=== PATIENT | male | born 1990 | race Caucasian/White ===

== ENCOUNTER → 2025-01-15 15:15 | Outpatient (BNVA) | payer BC, SELFPAY | PROVIDERS: Family Provider Nurse Practitioner Family; PCP Nurse Practitioner Family; Visit Provider Clinical Nurse Specialist Adult Health | DX: J06.9 Acute upper respiratory infection, unspecified (principal) | CPT/HCPCS: 87426 ==

== ENCOUNTER 2025-04-07 18:18 | Emergency (ER) | payer BC, SELFPAY ==
--- NOTE | 2025-04-07 18:22 | ECG_ITS ---
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 Measurements Intervals Entiat Rate: 74 P: 75 NM: 143 QRS: 83 QRSD: 97 T: 58 QT: 361 QTc: 401 Interpretive Statements SINUS RHYTHM No previous ECG available for comparison Electronically Signed On 04-08-2025 23:04:20 CDT by Deja Lord M.D. [email or web address]
--- OUTSIDE RECORDS SUMMARY | 2025-04-07 18:24 | XMS_ITS | Encounter Summary ---
Author Organization [facility] Address [address] [place] [address] Care Team Providers Care Fire Prevention Inspector Name Role Phone Unavailable Primary Care Provider Unavailabl e Encounter Details Date Type Department Care Team (Late st Contact Info) Description 12/07/2005 Outpatient Historical [facility] Plastic Surgery 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
[2025-04-07 18:25] VITALS: BP 129/81; PULSE 71; RESP 17; TEMP 36.8; O2SAT 96; BMI 27.1
--- OUTSIDE RECORDS SUMMARY | 2025-04-07 18:25 | XMS_ITS | Encounter Summary ---
Author Organization [employer] [facility] Address [address] [place] [address] Care Team Providers Care Director Of Digital Marketing Name Role Phone Unavailable Primary Care Provider Unavailabl e Encounter Details Date Type Department Care Team (Late st Contact Info) Description 11/30/2005 Inpatient Historical [facility] Michel Bolden MD [address] [place] [address] Cellulitis and Abscess of Hand, except Fingers and Thumb (Primary Dx) Social History Tobacco Use Types Packs/Day Years Used Date Smoking Tobacco: Never Assessed Sex and Gender Information Value Date Recorded Sex Assigned at Not on file 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 Gender Identity Not on file Sexual Orientation Not on file documented as of this encounter Plan of Treatment Not on file documented as of this encounter Procedures Procedure Name Priority Date/Time Associated Diagnosis Comments PT AND APTT Routine 11/30/2005 7:04 PM EVENT MANAGEMENT CONSULTANT CBC WITH DIFFERENTIAL Routine 11/30/2005 7:04 PM EVENT MANAGEMENT CONSULTANT BASIC METABOLIC PANEL Routine 11/30/2005 7:04 PM EVENT MANAGEMENT CONSULTANT documented in this encounter Results * PT AND APTT (11/30/2005 7:04 PM EVENT MANAGEMENT CONSULTANT) PROTIME 14.9 12.6 - 14.9 Secs INTERFACE SYSTEM Comment: As of 05 note change in normal range. INR 1.1 INTERFACE SYSTEM Comment: Expected Values for INR: DVT/PE Goal INR 2.5; range 2.0 - 3.0 Valve Replacement Tissue Goal INR 2.5; range 2.0 - 3.0 Mechanical Goal INR 3.0; range 2.5 - 3.5 POST-NC Goal INR 2.5; range 2.0 - 3.0 or Goal 3.0; range 2.5 - 3.5 Atrial Fibrillation Goal INR 2.5; range 2.0 - 3.0 Ischemic Stroke Goal INR 2.5; range 2.0 - 3.0 For additional information see Guidelines for Anticoagulation available from the pharmacy Randee Kimble PTT 26.5 21.5 - 34.4 Secs INTERFACE SYSTEM Comment: Therapeutic Range: Hi-level PE/DVT heparin protocol 90.1 -110 sec Lo-level PE/DVT heparin protocol 75.1 - 95 sec Cardiac Heparin Protocol 85.1 - 100 sec Neuro Heparin Protocol 70.1 - 85 sec As of 09/28/05 note change in APTT Normal Range. 11/30/2005 7:04 PM EVENT MANAGEMENT CONSULTANT Historical Provider HEMATOLOGY ORDERABLES Final Result Performing Organization Address [facility] Phone Number INTERFACE SYSTEM Refer to clinic/hospital department * BASIC METABOLIC PANEL (11/30/2005 7:04 PM EVENT MANAGEMENT CONSULTANT) GLUCOSE 90 70 - 110 mg/dL INTERFACE SYSTEM BUN 13 9 - 20 mg/dL INTERFACE SYSTEM CREATININE 1.0 0.7 - 1.5 mg/dL INTERFACE SYSTEM SODIUM 140 136 - 145 mEq/L INTERFACE SYSTEM POTASSIUM 3.8 3.5 - 5.0 mEq/L INTERFACE SYSTEM CHLORIDE 103 95 - 110 mEq/L INTERFACE SYSTEM CO2 28 22 - 32 mmol/l INTERFACE SYSTEM ANION GAP 13 9 - 20 mEq/L INTERFACE SYSTEM OSMOLALITY, CALCULATED 287 275 - 295 mOsm/Kg INTERFACE SYSTEM CALCIUM 9.6 8.4 - 10.5 mg/dL INTERFACE SYSTEM 11/30/2005 7:04 PM EVENT MANAGEMENT CONSULTANT Historical Provider CHEMISTRY ORDERABLES Final R esult Performing Organization Address [facility] de Phone Number INTERFACE SYSTEM Refer to clinic/hospital department * (ABNORMAL) CBC WITH DIFFERENTIAL (11/30/2005 7:04 PM EVENT MANAGEMENT CONSULTANT) WBC 12.7 4.5 - 13.5 K/ul INTERFACE SYSTEM RBC 4.91 4.30 - 5.30 Mil/ul INTERFACE SYSTEM HEMOGLOBIN 14.4 13.0 - 16.0 g/dL INTERFACE SYSTEM HEMATOCRIT 41.4 37.0 - 49.0 % INTERFACE SYSTEM MCV 84.3 78.0 - 98.0 Fl INTERFACE SYSTEM MCH 29.3 26.0 - 32.0 pg INTERFACE SYSTEM MCHC 34.8 33.0 - 35.0 g/dL INTERFACE SYSTEM RDW 12.8 11.0 - 14.5 % INTERFACE SYSTEM PLATELETS 173 140 - 440 K/ul INTERFACE SYSTEM MPV 10.6 8.9 - 12.8 Fl INTERFACE SYSTEM NEUTROPHILS 74.0 42.2 - 75.2 % INTERFACE SYSTEM LYMPHOCYTES 14.0(L) 24.0 - 44.0 % INTERFACE SYSTEM MONOCYTES 11.5(H) 2.0 - 10.0 % INTERFACE SYSTEM EOSINOPHILS 0.3 0.0 - 7.0 % INTERFACE SYSTEM BASOPHILS 0.2 0.0 - 1.0 % INTERFACE SYSTEM NEUTROPHIL ABSOLUTE 9.4(H) 2.0 - 8.0 K/uL INTERFACE SYSTEM LYMPHOCYTE ABSOLUTE 1.8 1.2 - 4.0 K/ul INTERFACE SYSTEM MONOCYTE ABSOLUTE 1.5(H) 0.1 - 0.6 K/ul INTERFACE SYSTEM EOSINOPHIL ABSOLUTE 0.0 0.0 - 0.7 K/ul INTERFACE SYSTEM BASOPHILS ABSOLUTE 0.0 0.0 - 0.2 K/ul INTERFACE SYSTEM 11/30/2005 7:04 PM EVENT MANAGEMENT CONSULTANT us Historical Provider HEMATOLOGY ORDERABLES Final Result INTERFACE SYSTEM Refer to clinic/hospital department documented in this encounter Visit Diagnoses Diagnosis Cellulitis and abscess of hand, except fingers and thumb- Primary documented in this encounter
--- OUTSIDE RECORDS SUMMARY | 2025-04-07 18:25 | XMS_ITS | Encounter Summary ---
Author Organization [facility] Address [address] [place] [address] Care Team Providers Care Hat Designer Name Role Phone Unavailable Primary Care Provider Unavailabl e Encounter Details Date Type Department Care Team (Latest Contact Info) Description 12/20/2002 Outpatient Historical [facility] Dermatology- [facility] [address] [place] [address] Jerman Duffy MD NO ADDRESS ON FILE ACNE NEC (Primary Dx) Social History Tobacco Use Types Packs/Day Years Used Date Smoking Tobacco: Never Assessed Sex and Gender Information Value Date Recorded Sex Assigned at Not on file 

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
--- OUTSIDE RECORDS SUMMARY | 2025-04-07 18:25 | XMS_ITS | Encounter Summary ---
Author Organization [facility] Address [address] [place] [address] Care Team Providers Care Monument Setter Helper Name Role Phone Unavailable Primary Care Provider Unavailabl e Encounter Details Date Type Department Care Team (Latest Contact Info) Description 10/13/2003 Outpatient Historical [facility] Dermatology- [facility] [place] [address] [place] [address] Jerman Duffy MD NO ADDRESS ON FILE ACNE NEC (Primary Dx) Social History Tobacco Use Types Packs/Day Years Used Date Smoking Tobacco: Never Assessed Sex and Gender Information Value Date Recorded Sex Assigned at Not on file 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
--- OUTSIDE RECORDS SUMMARY | 2025-04-07 18:25 | XMS_ITS | Encounter Summary ---
Author Organization [facility] Address [address] [place] [address] Care Team Providers Care Sales Agent Food Vending Service Name Role Phone Unavailable Primary Care Provider Unavailabl e Encounter Details Date Type Department Care Team (Late st Contact Info) Description 12/16/2005 Outpatient Historical [facility] Plastic Surgery 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
--- OUTSIDE RECORDS SUMMARY | 2025-04-07 18:25 | XMS_ITS | Encounter Summary ---
Author Organization [facility] Address [address] [place] [address] Care Team Providers Care Marble Machine Tender Name Role Phone Unavailable Primary Care Provider Unavailabl e Encounter Details Date Type Department Care Team (Latest Contact Info) Description 03/21/2003 Outpatient Historical [facility] Dermatology- [facility] [place] [address] [place] [address] Jerman Duffy MD NO ADDRESS ON FILE ACNE NEC (Primary Dx) Social History Tobacco Use Types Packs/Day Years Used Date Smoking Tobacco: Never Assessed Sex and Gender Information Value Date Recorded Sex Assigned at Not on file 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
--- OUTSIDE RECORDS SUMMARY | 2025-04-07 18:25 | XMS_ITS | Encounter Summary ---
Author Organization [employer] [facility] Address [address] [place] [address] Care Team Providers Care Registered Representative Name Role Phone Unavailable Primary Care Provider Unavailabl e Encounter Details Date Type Department Care Team (Late st Contact Info) Description 11/29/2014 Nurse Triage Report [id number] ABSTRACTION Yoana Mcghee, RN Social History Tobacco Use Types Packs/Day Years Used Date Smoking Tobacco: Never Alcohol Use Standard Drinks/Week Comments No 0 (1 standard drink = 0.6 oz pur e alcohol) Sex and Gender Information Value Date Recorded Sex Assigned at Not on file 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 PER ED NURSE ASSESSMENT Assessment Triage Questions: Caller has patient permission to share protected health and personal information for purposes of triage 3-N/A Associated Symptoms: Unable to move finer Onset: 20 days ago Location: L index finger Pain Assessment: 1 - 10 with 10 being the most severe pain 5 Treatment so far for current presenting problem: Super glued finger closed after deep laceration 20 days ago History (Clinical Problems): (Denies) History (Oncology/Hematology Diagnosis): N/A Treatment for oncology or hematology diagnosis: N/A Date of last oncology or hematology specific treatment: N/A Medications: NONE Medications and start of each - oncology related: N/A Medication reactions: NKDA Does this physician utilize [facility]FX[facility]ERT e-prescribing or treatment protocol? N/A Instructed to keep an updated list of their prescriptions and OTC medications and to take their list with them anytime they are seen by a PCP/UCC/ER and or a specialist 1-Yes, patient med-rec teaching done Call source (Pt is currently receiving oncology/hematology services from): 9. Not an oncology/hematology patient TRIAGE NOTE Triage Note: End Finder Forming Department Yoana Mcghee added this note on Nov 29 2014 1:19PM: Patient denied signs of infection, yet stated having to super glue finger back on 20 days ago and hasn't seen a physician and unable to move finger. No PCP. Adviced [facility] TRIAGE/OUTCOME Guideline Title: Hand Injury Recommended Disposition: See Provider within 4 hours Original Inclination: Call Provider/See in 24 Override Disposition: Intended Action: See care in UCC Physician Contacted: No Any signs and symptoms of localized infection that have not improved or are worsening with 24 hours of home care ? YES Physician Instructions: Care Advice: Thoroughly wash hands with soap and water before and after touching the site. documented in this encounter Plan of Treatment Not on file documented as of this encounter Visit Diagnoses Not on filedocumented in this encounter
--- NOTE | 2025-04-07 18:47 | ED_ITS ---
HPI - Chest Pain 2 General: Chief Complaint: Chest Pain Stated Complaint: Chest Pains Time Seen by Provider: 04/07/25 18:31 History of Present Illness: Patient is a 34-year-old male without prior history, not on any medications, presented to ED with chest pressure/heaviness that started last p.m. It is worse after eating. There was mild nausea this morning. No shortness of breath. He describes it as a pressure or heaviness in the mid to lower portion of his sternum without radiation. He states it is difficult to describe. No family history of early heart disease. His maternal grandfather was 65 when he had a myocardial infarction. His parents are 57, and 67, and do not have LHC/PTCA/intervention/myocardial infarction. He is a non-smoker. Cholesterol level is unknown. This does wax and wane. Drinks alcohol occasionally, 4?5 beers on the weekend on 1-2 days. No previous history of the symptoms. Associated symptoms: Reports nausea; Deny abdominal pain, dyspnea, fever(s), palpitations or vomiting Related Data Previous Rx's ?Medication ?Instructions ?Recorded albuterol sulfate 90 mcg/actuation 2 inh inhalation QI D PRN shortness 01/15/25 aerosol inhaler of breath or wheezing #8.5 g nakul prednisone 10 mg tablets in a dose See Rx Instructions PO PER PKG DIR 01/15/25 pack #21 ea azithromycin 250 mg tablet See Rx Instructions PO .COM PLEX #6 01/23/25 tabs omeprazole 40 mg capsule,delayed 40 mg PO DAILY 14 day s #14 caps 04/07/25 release Allergies Allergy/AdvReac Type Severity Reaction Status Date / Time No Known Allergies Allergy Unverified 01/15/25 15:04 Review of Systems 2 General: Reports: 10 or more systems reviewed and unremarkable except in HPI and below Const: Denies: fever(s) or chills Eyes: Denies: change in vision or blurry vision ENMT: Denies: throat pain or mouth pain Card: Reports: chest pain and irregular heart rhythm; Denies: palpitations Resp: Denies: dyspnea or non-productive cough GI: Reports: nausea; Denies: abdominal pain or vomiting : Denies: flank pain or difficulty urinating Musc: Denies: neck pain or back pain Neuro: Denies: headache(s) or numbness in extremities PFS ED 2 PFSH: Medical History (Updated 04/07/25 @ 21:03 by OLGA [place]) Upper respiratory infection Social History Smoking and tobacco/nicotine status: never used tobacco/nicotine Physical Exam 2 Const: COMMON NORMALS: no acute distress, average body habitus and patient oriented x3 HENMT: COMMON NORMALS: normocephalic and atraumatic HEAD & SCALP: n ormocephalic and atraumatic Eye: COMMON NORMALS: Equal, round and reactive pupils present, EOMs intact bilaterally and conjunctivae normal CONJUNCTIVA: Yes conjunctivae normal P UPIL: Yes Equal, round and reactive pupils present Chest: COMMONS NORMALS: normal inspection of the chest and normal palpation of entire chest wall Resp: COMMON NORMALS: normal respiratory effort and clear to auscultation bilaterally AUSCULTATION: clear to auscultation bilaterally Cardio: COMMON NORMALS: regular rate and regular rhythm RATE: regular rate RHYTHM: regular rhythm GI: COMMON NORMALS: Normal to inspection, nondistended, normoactive bowel sounds present, Soft to palpation and non-tender PALPATION: Yes Soft to palpation : COMMON NORMALS: Yes no CVA tenderness BLADDER/KIDNEY EXAM: Yes no CVA tenderness Back/Pelvis: COMMON NORMALS: no CVA tenderness Extremity: COMMON NORMALS: normal to inspection, full ROM and capillary refill normal Neuro: COMMON NORMALS: patient oriented x3 Psych: COMMON NORMALS: mental status grossly normal and Normal thought process present THOUGHT PROCESS: Normal thought process present Skin: COMMON NORMALS: no rashes or lesions noted and no wounds GENERAL SKIN EXAM: no rashes or lesions noted Course 2 Reevaluation(s): Reevaluation #1: No further issues with chest pain. Vital Signs: Vital signs: Vital Signs Temperature 98.2 F 04/07/25 18:25 Pulse Rate 61 04/07/25 20:41 Respiratory Rate 17 04/07/25 20:41 Blood Pressure 131/82 04/07/25 20:41 Pulse Oximetry 98 04/07/25 20:41 Oxygen Delivery Me thod Room Air 04/07/25 18:25 MDM - Chest Pain Medical Decision Making Patient has negative lipase, negative troponin x 2. Suspect esophageal spasm. Will give GI cocktail x 1. Will advise PPI, short-term. Medical Records I reviewed the patient's medical records. Lab Data I reviewed the patient's lab results. 04/07/25 18:47 04/07/25 18:47 Radiology Impressions Chest X-Ray 04/07/25 19:07 IMPRESSION: No definite acute abnormality. Laboratory Results WBC 7.31 10^3/uL (3.29-11.43) 04/07/25 18:47 RBC 5.18 10^6/uL (3.85-5.65) 04/07/25 18:47 Hgb 14.90 g/dL (11.27-16.99) 04/07/25 18:47 Hct 43.3 % (37-53) 04/07/25 18:47 MCV 83.6 fl (82-101) 04/07/25 18:47 MCH 28.8 pg (27-33) 04/07/25 18:47 MCHC 34.4 g/dL (30-55) 04/07/25 18:47 RDW 12.6 % (12.1-15.1) 04/07/25 18:47 Plt Count 230 10^3/cmm (157-399) 04/07/25 18:47 MPV 10.2 fL (7.4-10.4) 04/07/25 18:47 Neut % (Auto) 58.5 % 04/07/25 18:47 Lymph % (Auto) 21.2 % 04/07/25 18:47 [place] % (Auto) 8.9 % 04/07/25 18:47 Eos % (Auto) 10.3 % 04/07/25 18:47 Baso % (Auto) 0.8 % 04/07/25 18:47 Neut # (Auto) 4.28 10^3/uL (1.8-7.7) 04/07/25 18:47 Lymph # (Auto) 1.6 10^3/uL (0.8-4.8) 04/07/25 18:47 [place] # (Auto) 0.7 10^3/uL (0.2-0.9) 04/07/25 18:47 Eos # (Auto) 0.8 10^3/uL (0.0-0.8) 04/07/25 18:47 Baso # (Auto) 0.1 10^3/uL (0.0-0.1) 04/07/25 18:47 Nucleated RBC % (auto) 0 % 04/07/25 18:47 Nucleated RBCs # 0.0 /100WBC 04/07/25 18:47 Sodium 142 mmol/L (136-145) 04/07/25 18:47 Potassium 4.0 mmol/L (3.5-5.1) 04/07/25 18:47 Chloride 106 mmol/L (98-107) 04/07/25 18:47 Carbon Dioxide 22 mmol/L (22-29) 04/07/25 18:47 Anion Gap 18.0 (5-19) 04/07/25 18:47 BUN 13 mg/dL (6-20) 04/07/25 18:47 Creatinine 1.0 mg/dL (0.7-1.2) 04/07/25 18:47 GFR Calculation 84.5 mL/min (90-130) L 04/07/25 18:47 Glucose 83 mg/dL (65-115) 04/07/25 18:47 Calculated Osmolality 293 mOsm/kg (285-295) 04/07/25 18:47 Calcium 9.1 mg/dL (8.5-10.5) 04/07/25 18:47 Total Bilirubin 0.4 mg/dL (0.15-1.2) 04/07/25 18:47 AST 20 U/L (0-40) 04/07/25 18:47 ALT 18 U/L (0-41) 04/07/25 18:47 Alkaline Phosphatase 97 U/L (40-130) 04/07/25 18:47 Troponin T Baseline < 6 ng/L (0-15) 04/07/25 18:47 Troponin T 120 Minute < 6.0 ng/L (0-15) 04/07/25 20:16 Delta Troponin T 0 ABS# (0-10) 04/07/25 20:16 Total Protein 7.3 g/dL (6.6-8.7) 04/07/25 18:47 Albumin 4.5 g/dL (3.5-5.2) 04/07/25 18:47 Globulin 2.8 g/dL (1.3-4.6) 04/07/25 18:47 Lipase 28 U/L (13-60) 04/07/25 18:47 All radiology interpretation(s) finalized by discharge EKG Data EKG 1: Interpretation: nsr, no ST segment elevation EKG 2: Interpretation: Normal sinus rhythm, no ST segment elevation, PAC Discharge Plan Discharge Patient Disposition: Home Clinical Impression: Esophageal spasm Condition: Stable Prescriptions: New omeprazole 40 mg capsule,delayed release(DR/EC) 40 mg PO DAILY 14 Days Qty: 14 0RF No Action prednisone 10 mg tablets,dose pack See Rx Instructions PO PER PKG DIR Qty: 21 0RF Rx Instructions: PO PER PKG DIR albuterol sulfate 90 mcg/actuation HFA aerosol inhaler 2 inh inhalation QID PRN (Reason: shortness of breath or wheezing) Qty: 8.5 2RF azithromycin 250 mg tablet See Rx Instructions PO .COMPLEX Qty: 6 0RF Rx Instructions: For 250 mg dose pack: take 500 mg today (day 1), then 250 mg for 4 days (days 2-5) PO Discharge Orders: Discharge ED (Routine); Ordered 04/07/25 Ordered By: Yasmine De La Rosa Referrals: Jelly Vásquez FNP-C [Primary Care Provider, [facility]] Discharge Diet: Low Salt Discharge Activity: Resume usual activity Patient Instructions: Esophageal Spasm (ED), Patient Portal & Ernesto Instructions Activity Restrictions/Additional Instructions: 2 weeks of medication for esophagus spasm has been sent to your pharmacy. Please start in a.m. Follow-up with your primary care physician regarding today's visit. There was no findings found for your heart, or your gallbladder. Sometimes, they do want to go ahead and run some additional testing. If you do have further chest discomfort, return to the ED for additional rule out. Return to ED for worsening symptoms, fever greater than 100.4 ?F. Print Language: Malay Coding Level of Care Code ED Industrial Arts Teacher for Seamus Giang
[2025-04-07 18:56] VITALS: BP 114/78; PULSE 79; RESP 16; O2SAT 98
[2025-04-07 19:02] LABS: Hematocrit 43.3 % (37-53); Hemoglobin 14.90 g/dL (11.27-16.99); Mean Corpuscular HGB Conc 34.4 g/dL (30-55); Mean Corpuscular Hemoglobin 28.8 pg (27-33); Mean Corpuscular Volume 83.6 fl (82-101); Nucleated Red Blood Cells % 0 %; Platelet Count 230 10^3/cmm (157-399); Red Blood Count 5.18 10^6/uL (3.85-5.65); White Blood Count 7.31 10^3/uL (3.29-11.43)
--- NOTE | 2025-04-07 19:07 | XRR_ITS ---
PROCEDURE INFORMATION: Exam: XR Chest Exam date and time: 04/07/2025 7:08 PM Age: 34 years old Clinical indication: Pain; Chest pressure; Additional info: Chest pain TECHNIQUE: Imaging protocol: Radiologic exam of the chest. Views: 1 view. COMPARISON: No relevant prior studies available. FINDINGS: Lungs: Probable granulomas at the left lung base. No definite focal consolidation. Pleural spaces: Unremarkable. No pleural effusion. No pneumothorax. Heart/Mediastinum: Unremarkable. No cardiomegaly. Bones/joints: Unremarkable. XR/XR chest 1V portable [id number] IMPRESSION: No definite acute abnormality.
[2025-04-07 19:12] LABS: Troponin(5th) Baseline < 6 ng/L (0-15)
[2025-04-07 19:27] LABS: Alanine Aminotransferase 18 U/L (0-41); Albumin Level 4.5 g/dL (3.5-5.2); Alkaline Phosphatase 97 U/L (40-130); Anion Gap 18.0 (5-19); Aspartate Amino Transferase 20 U/L (0-40); Blood Urea Nitrogen 13 mg/dL (6-20); Calcium 9.1 mg/dL (8.5-10.5); Carbon Dioxide 22 mmol/L (22-29); Chloride 106 mmol/L (98-107); Creatinine Clr Calc Pharmacy 119.6682; Globulin 2.8 g/dL (1.3-4.6); Glucose 83 mg/dL (65-115); Lipase 28 U/L (13-60); Osmolality Calculated 293 mOsm/kg (285-295); Potassium 4.0 mmol/L (3.5-5.1); Sodium 142 mmol/L (136-145); Total Protein 7.3 g/dL (6.6-8.7)
[2025-04-07 19:49] VITALS: BP 122/82; PULSE 72; RESP 17; O2SAT 98
--- NOTE | 2025-04-07 20:29 | ECG_ITS ---
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 Measurements Intervals [place] Rate: 71 P: 74 IN: 155 QRS: 84 QRSD: 98 T: 56 QT: 378 QTc: 412 Interpretive Statements SINUS RHYTHM WITH MARKED SINUS ARRHYTHMIA Compared to ECG 04/07/2025 18:24:42 No significant changes Electronically Signed On 04-09-2025 09:28:50 CDT by Deja Lord M.D. [email or web address]
[2025-04-07 20:41] VITALS: BP 131/82; PULSE 61; RESP 17; O2SAT 98
[2025-04-07 20:51] LABS: Troponin 5 2HR < 6.0 ng/L (0-15); Troponin 5 2HR Delta 0 ABS# (0-10)
[2025-04-07] MEDS: lidocaine 2% viscous 15 ML, aluminum-mag hydrox-simethicon 30 ML, sucralfate oral liq 1 GM PO (21:09)
[2025-04-07 21:13] VITALS: BP 125/82; PULSE 70; RESP 18; O2SAT 96
== END 2025-04-07 21:15 | disposition home or self-care (01) ==
PROVIDERS: Emergency Provider Physician Assistant; Family Provider Nurse Practitioner Family; PCP Nurse Practitioner Family
DX: K22.4 Dyskinesia of esophagus (principal)
CPT/HCPCS: 36415; 71045; 80053; 83690; 84484; 85025; 93005; 99285; J9999